=== PATIENT | male | born 1975 | race Caucasian/White ===

== ENCOUNTER 2023-02-01 14:52 | Emergency (ER) | payer BC ==
[2023-02-01] MEDS ORDERED: Lidocaine 1% 10 ML MDV INJECT ONE (15:52)
== END 2023-02-01 17:10 | disposition home or self-care (01) ==
LOC: JD.ED 14:52
DX: S51.811A Laceration without foreign body of right forearm, initial encounter (principal); W22.8XXA Striking against or struck by other objects, initial encounter; Y92.79 Other farm location as the place of occurrence of the external cause
CPT/HCPCS: 12002; 99282; J3490